=== PATIENT | female | born 1935 | race Caucasian/White ===

== ENCOUNTER 2017-03-05 14:31 | Emergency (ER) | payer MEDICARE, OTHER ==
[2017-03-05 15:12] LABS: PH,URINE 6.5 (5.0 - 9.0); URINE BILIRUBIN 1+ (NEGATIVE); URINE BLOOD TRACE (NEGATIVE); URINE GLUCOSE (UA) NORMAL (NORMAL); URINE KETONE NEGATIVE (NEGATIVE); URINE LEUKOCYTE ESTERASE 1+ (NEGATIVE); URINE NITRATE NEGATIVE (NEGATIVE); URINE PROTEIN NEGATIVE (NEGATIVE)
[2017-03-05 15:23] LABS: BASO % 0.4 % (0.1-1.2); EOS # 0.1 10_X3_uL (0.0-0.4); EOS % 2.4 % (0.7-5.8); GRAN # 3.4 10_X3_uL (1.6-6.1); GRAN % 67.6 % (34.0-71.1); HEMATOCRIT 36.2 % (34-45); HEMOGLOBIN 11.1 g/dL (11.2-15.7); LYMPH % 20.3 % (19.3-51.7); MEAN CORPUSCULAR HEMOGLOBIN 32.4 pg (27.0-33.0); MEAN CORPUSCULAR HGB CONC 30.7 g/dL (32.0-36.0); MEAN CORPUSCULAR VOLUME 105.5 fL (79-95); MEAN PLATELET VOLUME 9.5 fl (7.5-11.5); MONO # 0.5 10_X3_uL (0.2-0.9); MONO % 9.3 % (4.7-12.5); PLATELET COUNT 242 x10_3/uL (182-369); RED BLOOD COUNT 3.43 x10_6/uL (3.9-5.2); RED CELL DISTRIBUTION WIDTH 13.2 % (11.7-14.4); WHITE BLOOD COUNT 5.1 x10_3/uL (4.0-10.0)
[2017-03-05 15:31] LABS: URINE BACTERIA TRACE (NONE SEEN); URINE RBC 0-5 /[HPF] (0-2); URINE SQUAMOUS EPITHELIAL CELL 0-10 /[HPF] (NONE SEEN); URINE WBC 0-5 /[HPF] (0-5)
[2017-03-05 15:32] LABS: INR 1.7 (0.9-1.1)
== END 2017-03-05 16:27 | disposition home or self-care (01) ==
LOC: ER 14:31
PROVIDERS: Internal Medicine
DX: M48.54XS Collapsed vertebra, not elsewhere classified, thoracic region, sequela of fracture (principal); M54.6 Pain in thoracic spine; M81.0 Age-related osteoporosis without current pathological fracture; Z95.2 Presence of prosthetic heart valve; Z88.0 Allergy status to penicillin; Z79.891 Long term (current) use of opiate analgesic; Z79.899 Other long term (current) drug therapy; Z79.01 Long term (current) use of anticoagulants
CPT/HCPCS: 36415; 72072; 81001; 85025; 85610; 99070; 99283

== ENCOUNTER 2017-04-04 14:30 | Emergency (ER) | payer MEDICARE, OTHER | END 2017-04-04 15:50 | disposition home or self-care (01) | LOC: ER 14:30 | DX: M54.5 Low back pain (principal); G89.29 Other chronic pain; Z79.891 Long term (current) use of opiate analgesic; Z79.01 Long term (current) use of anticoagulants; Z79.899 Other long term (current) drug therapy; Z88.0 Allergy status to penicillin | CPT/HCPCS: 96372; 99282-25; 99283; J1170 ==

== ENCOUNTER 2017-05-12 12:11 | Emergency (ER) | payer MEDICARE, OTHER | END 2017-05-12 14:22 | disposition home or self-care (01) | LOC: ER 12:11 | DX: M54.9 Dorsalgia, unspecified (principal); I34.1 Nonrheumatic mitral (valve) prolapse; Z79.01 Long term (current) use of anticoagulants; Z96.642 Presence of left artificial hip joint; Z79.899 Other long term (current) drug therapy; Z79.891 Long term (current) use of opiate analgesic; Z88.0 Allergy status to penicillin | CPT/HCPCS: 96372; 99282-25; 99283; J1170 ==